=== PATIENT | male | born 1950 | race Caucasian/White ===

== ENCOUNTER → 2016-09-03 | Outpatient (CLI) | payer MEDICARE, OTHER | LOC: OD 09:15 | PROVIDERS: ATTEND Family Medicine | DX: M25.552 Pain in left hip (principal) ==

== ENCOUNTER → 2016-09-05 | Day surgery (SDC) | payer MEDICARE, OTHER ==
[~2016-09-05] MED LIST: BUPIVACAINE HCL 0.5 % INJ/PF 30 ML SDV ONE; METHYLPREDNISOLONE ACETATE INJ 40 MG/1 ML ML ONE
== END ==
LOC: RAD 12:14
PROVIDERS: ATTEND Family Medicine
PROC: 3E0U33Z Introduction of Anti-inflammatory into Joints, Percutaneous Approach (ICD-10-PCS; principal; 2016-09-05)
DX: M25.552 Pain in left hip (principal)
CPT/HCPCS: 73501; 20610; 77002; J1020

== ENCOUNTER → 2017-01-31 | Day surgery (SDC) | payer MEDICARE, OTHER ==
--- NOTE | 2017-01-31 14:12 | RADIOLOGY REPORT (SQ) ---
EXAM DESCRIPTION: HIP UNILATERAL-1 VIEW; FLUORO/NEEDLE PLACEMENT; INJECT/ASPIR HIP/SHLDR/KNEE COMPLETED DATE/TIME: 01/31/2017 1:14 pm REASON FOR STUDY: PAIN IN L HIP M25.552 PAIN IN LEFT HIP COMPARISON: 09/05/2016 left hip injection FLUOROSCOPY TIME: 20 seconds 2 digital radiographic images saved to PACS. LIMITATIONS: None. PROCEDURE: SITE OF INJECTION: Left hip LOCALIZING CONTRAST TYPE AND DOSE: 1 mL Isovue-300 injected to confirm intra-articular needle placeme nt MEDICATION TYPE AND DOSE: 80 mg of Depo-Medrol, 5 mL of 0.5% bupivacaine Using local anesthesia and sterile technique with fluoroscopic guidance, the needle was advanced into the joint. Iodinated contrast was injected to verify intraarticular placement. This was followed by therapeutic injection of the indicated medications. The needle was removed. There were no immediat e complications. Preprocedure pain level: 10/10. Postprocedure pain level: 4/10. On the AP fluoroscopic images obtained today, there has been further collapse of the articular surfac e left femoral head as compared to imaging from 09/05/2016. IMPRESSION: THERAPEUTIC INJECTION OF THE left hip JOINT ABOVE. COMMENT: Patient medication list reviewed: Yes- Quality ID# [id number]:Eligible professional attests to doc umenting in the medical record they obtained, updated, or reviewed the patient's current medications. . Quality ID [id number]: Final reports for procedures using fluoroscopy that document radiation exposure brett tamra, or exposure time and number of fluorographic images (if radiation exposure indices are not avail able) TECHNICAL DOCUMENTATION: JOB ID: [id number] [employer]- All Rights Reserved
== END ==
LOC: RAD 11:50 → EDSTATUS 13:00
PROVIDERS: ATTEND Nuclear Medicine
PROC: 3E0U33Z Introduction of Anti-inflammatory into Joints, Percutaneous Approach (ICD-10-PCS; principal; 2017-01-31)
DX: M25.552 Pain in left hip (principal)
CPT/HCPCS: 73501; 20610; 77002; J1020